=== PATIENT | female | born 1940 | race Caucasian/White ===

== ENCOUNTER → 2017-06-06 | Outpatient (CLI) | payer MEDICARE ==
[~2017-06-06] MED LIST: ASPI-183 PO; CALC1TAB87 PO; ENAL20TA PO; ESTR0.1D3 T-DERMAL; FLAX1000 PO; LEVO25TA4 PO; MAGN250T11 PO; NIFE1TAB PO; OMEG12002 PO; SIMV40TA PO; TIMO0.5S30 LEFT EYE; VITA-142 PO; VITA1000 PO
[2017-06-06 09:40] LABS: AUTOMATED NEUTROPHIL # 6.2 TH/MM3 (1.8-7.7); BASOPHIL # 0.1 TH/MM3 (0-0.2); BASOPHIL % 0.7 % (0.0-2.0); EOSINOPHIL # 0.2 TH/MM3 (0-0.4); EOSINOPHIL % 2.7 % (0.0-4.0); HEMATOCRIT 42.7 % (35.0-46.0); HEMO FLAGS DIFF FINAL; LYMPH % 13.2 % (9.0-44.0); LYMPHOCYTE # 1.1 TH/MM3 (1.0-4.8); MEAN CELL VOLUME 94.1 FL (80.0-100.0); MEAN CORPUSCULAR HEMOGLOBIN 32.3 PG (27.0-34.0); MEAN CORPUSCULAR HGB CONC 34.4 % (32.0-36.0); MONO % 10.8 % (0.0-8.0); NEUT % 72.6 % (16.0-70.0); PLATELET COUNT 243 TH/MM3 (150-450); RED BLOOD COUNT 4.54 MIL/MM3 (4.00-5.30); RED CELL DISTRIBUTION WIDTH 12.8 % (11.6-17.2); WHITE BLOOD COUNT 8.6 TH/MM3 (4.0-11.0)
[2017-06-06 09:44] LABS: BACTERIA, URINE FEW /hpf; BLOOD, URINE NEG (NEG); COMMENT (UR) CULT NOT INDICATED; CULTURE IF INDICATED CULT NOT INDICATED; GLUCOSE,URINE NEG (NEG); KETONE, URINE NEG (NEG); MUCUS URINE FEW /lpf (OCC); NITRITE,URINE NEG (NEG); PH, URINE 6.5 (5.0-8.5); SQUAMOUS EPITHELIAL CELL URINE 7 /hpf (0-5); URINE COLOR LIGHT-YELLOW (YELLW/STRAW)
[2017-06-06 10:00] LABS: ANION GAP 8 MEQ/L (5-15); AST (GOT) 20 U/L (15-37); BICARBONATE 29.1 MEQ/L (21.0-32.0); BLOOD UREA NITROGEN 18 MG/DL (7-18); CHLORIDE 104 MEQ/L (98-107); GLOMERULAR FILTRATION RATE 55 ML/MIN (>89); GLUCOSE,FASTING 105 MG/DL (74-99); POTASSIUM 4.2 MEQ/L (3.5-5.1); SODIUM (NA) 141 MEQ/L (136-145)
[2017-06-06 10:03] LABS: ALKALINE PHOSPHATASE 89 U/L (45-117); ALT (GPT) 22 U/L (10-53); TOTAL BILIRUBIN ADULT 0.5 MG/DL (0.2-1.0)
--- NOTE | 2017-06-07 09:30 | EKG ---
Date Performed: 06/06/2017 Time Performed: 09:18:44 PTAGE: 77 years EKG: Sinus rhythm . Poor R wave progression - probable normal variant Inferior and anterior T wave changes are nonspeci fic Borderline ECG NO PREVIOUS TRACING DOCTOR: Yogi Mullen Interpretating Date/Time 06/07/2017 09:28:50
== END ==
LOC: CPRE 08:20
PROVIDERS: ATTEND Orthopaedic Surgery
DX: Z01.810 Encounter for preprocedural cardiovascular examination (principal); Z01.812 Encounter for preprocedural laboratory examination; M17.11 Unilateral primary osteoarthritis, right knee; R94.31 Abnormal electrocardiogram [ECG] [EKG]
CPT/HCPCS: 36415; 80053; 81001; 85025; 93005

== ENCOUNTER 2017-06-25 07:56 | Inpatient (IN) | payer MEDICARE ==
[~2017-06-25] VITALS: Ht 160 cm; Wt 59.0 kg
[2017-06-25] MEDS ORDERED: VANCOMYCIN 1250 MG/NS 250 ML (for 70-84 kg) IV SCH ×4 (08:30→09:00)
[2017-06-25] MEDS ORDERED: SODIUM CHLORIDE 0.9% INJ 100 ML ONE (08:58)
[2017-06-25] MEDS ORDERED: CHLORHEXIDINE GLUCONATE 2 % 1 PACK (2 CLOTHS) TOPICAL PRN (09:00)
[2017-06-25] MEDS ORDERED: SODIUM CHLORID 0.9% 500 ML IV PRN (09:00)
[2017-06-25] MEDS ORDERED: LACTATED RINGER'S 1000 ML IV PRN (09:00)
[2017-06-25] MEDS ORDERED: CLINDAMYCIN 900 MG/NS 100 ML IV SCH ×2 (09:00)
[2017-06-25] MEDS ORDERED: POVIDONE IODINE 7.5% SCRUB 118 ML BOTTLE TOPICAL SCH (09:00)
[2017-06-25] MEDS ORDERED: METOPROLOL TARTRATE 25 MG TAB PO PRN (09:00)
[2017-06-25] MEDS ORDERED: POVIDONE IODINE 5% (ANTISEPSIS KIT) 4 APPLICATIONS EACH NARE PRN (09:00)
[2017-06-25] MEDS ORDERED: ROPIVACAINE PERI-ARTICULAR INJECTION. P-ARTICULR SCH ×5 (10:00)
[2017-06-25] MEDS ORDERED: TRANEXAMIC ACID INJ 590 MG in SODIUM CHLORIDE 0.9% INJ 100 ML IV SCH ×3 (10:00→14:00)
[2017-06-25] MEDS ORDERED: ACETAMINOPHEN 1000 MG/100 ML 100 ML IV ONE (10:22)
[2017-06-25] MEDS ORDERED: MIDAZOLAM HCL 2 MG/2 ML VIAL ONE (10:35)
[2017-06-25] MEDS ORDERED: ONDANSETRON HCL 4 MG/2 ML VIAL IV PUSH ONE (12:00)
[2017-06-25] MEDS ORDERED: KETOROLAC TROMETHAMINE 30 MG/ML (IVP) VIAL IV PUSH ONE (12:00)
[2017-06-25] MEDS ORDERED: *Lactated Ringer's INJ 1,000 ML IV ONE (12:00)
[2017-06-25] MEDS ORDERED: ePHEDrine/NS 25 MG/5 ML SYRINGE IV ONE (12:00)
[2017-06-25] MEDS ORDERED: PROPOFOL 200 MG/20 ML AMP IV ONE (12:00)
[2017-06-25] MEDS ORDERED: NEOSTIGMINE 5 MG/5 ML SYRINGE IV PUSH ONE (12:00)
[2017-06-25] MEDS ORDERED: ROCURONIUM INJ 50 MG/5 ML SYRINGE IV PUSH ONE (12:00)
[2017-06-25] MEDS ORDERED: PHENYLEPH/NS 1000 MCG/10 ML SYR IV PUSH ONE (12:00)
[2017-06-25] MEDS ORDERED: GLYCOPYRROLATE 1 MG/5 ML SYRINGE IV PUSH ONE (12:00)
[2017-06-25] MEDS ORDERED: LIDOCAINE HCL 1% PF 5 ML SYRINGE OTHER ONE (12:00)
[2017-06-25] MEDS ORDERED: DEXAMETHASONE SOD PHOS 4 MG/ML VIAL IV ONE (12:00)
[2017-06-25] MEDS ORDERED: TOBRAMYCIN 1200 MG VIAL (ortho-sterile core) ONE (12:13)
[2017-06-25] MEDS ORDERED: GENTAMICIN SULFATE 80 MG/2 ML VIAL IRRIGATION ONE (12:27)
[2017-06-25] MEDS ORDERED: DO NOT ADM ANY ANTICOAGULANT DRUGS PRN (13:25)
[2017-06-25] MEDS ORDERED: ONDANSETRON HCL 4 MG/2 ML VIAL IVP PRN (13:30)
[2017-06-25] MEDS ORDERED: TRAM50 PO (13:30)
[2017-06-25] MEDS ORDERED: HYDR-3516 PO (13:30)
[2017-06-25] MEDS ORDERED: Post-op Orders (for Pharmacy) XX ONE (13:30)
[2017-06-25] MEDS ORDERED: MORPHINE SULFATE 30 MG/30 ML PCA IV SCH (13:30)
[2017-06-25] MEDS ORDERED: TEMAZEPAM 15 MG CAP PO PRN (13:30)
[2017-06-25] MEDS ORDERED: diphenhydrAMINE HCL 50 MG/ML VIAL IV PUSH PRN (13:30)
[2017-06-25] MEDS ORDERED: traMADol HCL 50 MG TAB PO PRN (13:30)
[2017-06-25] MEDS ORDERED: NALOXONE HCL 0.4 MG/ML AMP IV PUSH PRN (13:30)
--- NOTE | 2017-06-25 13:32 | HHI.FF ---
Face to Face Verification Diagnosis: (1) Total knee replacement status Physical Therapy Gait training Knee: Total knee, Protocol: Right Right LE Weight Bearing: WB as tolerated Nursing Nursing: Dressing changes (No dressing change till jul 01, then QOD) Dressing Changes: Coverderm/Primapore I have seen patient Christine Gary on 06/25/17. My clinical findings support the need for the requested home health care services because: Limited ability to care for self I certify that my clinical findings support that this patient is homebound because: Post-op weakness Unable to use public transportation Orlando Recio MD Jun 25, 2017 13:32
[2017-06-25] MEDS ORDERED: WALKER WHEELS/F1 MIS (13:35)
[2017-06-25] MEDS ORDERED: COMMODE 3-IN-11 MIS (13:35)
[2017-06-25] MEDS: SODIUM CHLOR 0.9% 1000 ML INJ 1,000 ML IV SCH (13:48)
--- NOTE | 2017-06-25 13:53 | MP ---
cc: YVETTEJACQUELYN DATE OF SURGERY 06/25/2017 DATE OF 1940 ANESTHESIA General PREOPERATIVE DIAGNOSIS Osteoarthritis right knee POSTOPERATIVE DIAGNOSIS Osteoarthritis right knee OPERATIVE PROCEDURE Total knee replacement arthroplasty right knee using cemented Biomet Vanguard components. Femur 62.5 mm, tibia 63 mm I-Beam stem, polyethylene 12 mm flat patella was not resurfaced. TECHNIQUE After induction of general anesthesia and adductor block, the right lower extremity was thoroughly prepped with alcohol and ChloraPrep and draped in routine fashion. The knee was flexed and a skin incision was marked medial to the midline, keeping it away from where she would be kneeling on during her employment. The incision was deepened through the subcutaneous tissue. A medial parapatellar arthrotomy incision was carried out followed by retraction of the patella and exposure of the medial side of the tibia by subperiosteal dissection of the medial structures, protecting the superficial medial collateral ligament. Osteophytes were excised. Eventually dissection carried out to the posteromedial corner with an excision of osteophytes and some limited soft tissue release there. A distal femoral cutting guide was used to 5 degrees of valgus after opening the canal and the distal femoral cut was made. A proximal tibial cut was made referencing it 4-mm from the lower most portion of the medial tibial plateau and I was satisfied with the bone excision. Alignment of the tibial cut was checked and found to be satisfactory. AP cutting guide was used in 3 degrees of external rotation in reference to the epicondylar axis and Whitesides line and it was noted that there was some medial lateral mismatch and therefore the anterior holes on the guide were made rather than the posterior holes. 62.5 mm cutting block was used to make AP and chamfer cuts. A spacer block was used and fits well in flexion, extension, mid flexion. No instability. There has been adequate release on the medial side. Bony surfaces prepared for the trial which was then placed and trialed with 10 and 12 mm spacer and found to be satisfactory. Patella tracks nicely. The patella was examined. There was plenty of cartilage there. The osteophytes were excised and it was decided not to resurface the patella. The bony surfaces were thoroughly lavaged and dried. The femoral canal plugged with bone. A mixture of Exparel diluted with saline was injected periarticularly. Bony surfaces thoroughly lavaged and dried following cementation of the implants with Simplex cement with 1200 mg of Tobramycin in it. The tibia was placed first in satisfactory external rotation, followed by femur extending the knee getting all the excess cement out. While the cement was solidifying, a solution of 17.5 cc of Betadine and 100 mg of saline placed in the joint for five minutes. The tourniquet was released once cement solidified. The joint was checked. There is some tendency for tightness of the patella laterally and therefore a limited lateral release was carried out. The vessel had to be cauterized. Once that was done, there was good tracking of the patella. The knee was closed in mid-flexion with four interrupted #2 Vicryl sutures in the retinaculum. The rest closed with #2 Quill, the subcutaneous tissue closed with 2-0 Vicryl, skin closed with subcuticular 3-0 Quill and Steri-Strips. Dressings applied with silver impregnated super-absorbent dressing, followed by Sof-Rol, ice bladder, and Flavio bandage. Hemovac drain left in the suprapatellar pouch brought out through the superolateral aspect and the drain clamped. The patient tolerated the procedure well, transfusions and complications none. Postoperative condition, satisfactory. PROGNOSIS Good MD CONNIE Cheng/YASH /1:00 PM /1:07 PM
[2017-06-25] MEDS ORDERED: *morphine SULFATE 4 MG/ML PERIprocedure ONLY ONE ×3 (13:58→14:17)
[2017-06-25] MEDS ORDERED: ESTRADIOL 0.1 MG/24 HR PATCH T-DERMAL SCH (14:00)
--- NOTE | 2017-06-25 14:08 | RADRPT ---
EXAM DATE/TIME: 06/25/2017 13:50 [facility] COMPARISON: No previous studies available for comparison. INDICATIONS : Post op right total knee. MEDICAL HISTORY : Unobtainable. SURGICAL HISTORY : Unobtainable. ENCOUNTER: Initial ACUITY: 1 day PAIN SCORE: Non-responsive. LOCATION: Right knee. FINDINGS: AP and lateral views of the knee following arthroplasty reveals a prosthesis in anatomic alignment. F racture is not appreciated. Surgical drain is evident CONCLUSION: Status post total knee arthroplasty. Skyler Griffin MD FACR. Board Certified Radiologist. This report was verified electronically.
[2017-06-25 16:00] VITALS: BP 109/57; PULSE 66; RESP 17; TEMP 95.1; O2SAT 94
[2017-06-25] MEDS ORDERED: REMOVE OLD PATCH T-DERMAL SCH (16:00)
[2017-06-25] MEDS: CLINDAMYCIN INJ 600 MG in SODIUM CHLORIDE 0.9% INJ 100 ML IV SCH (18:50)
[2017-06-25 20:25] VITALS: BP 117/61; PULSE 68; RESP 20; TEMP 97.2; O2SAT 94
[2017-06-25] MEDS: KETOROLAC TROMETHAMINE 30 MG/ML (IVP) VIAL IVP SCH (20:42)
[2017-06-25] MEDS: ENALAPRIL MALEATE 10 MG TAB PO SCH (20:42)
[2017-06-25] MEDS: TIMOLOL MALEATE 0.5% OPHT SOLN 5 ML BTL LEFT EYE SCH (20:48)
[2017-06-25] MEDS ORDERED: VANCOMYCIN INJ 1,250 MG in SODIUM CHLOR 0.9% 250 ML INJ 250 ML IV SCH (23:00)
[2017-06-26] VITALS (7 sets, daily range): BP systolic 101–138; BP diastolic 52–70; PULSE 68–76; RESP 17–18; TEMP 95.5–97.7; O2SAT 92–94
[2017-06-26] MEDS: CLINDAMYCIN INJ 600 MG in SODIUM CHLORIDE 0.9% INJ 100 ML IV SCH ×3 (00:34→12:59)
[2017-06-26] MEDS: SODIUM CHLOR 0.9% 1000 ML INJ 1,000 ML IV SCH ×4 (00:34→21:00)
[2017-06-26 04:55] LABS: HEMATOCRIT 34.8 % (35.0-46.0); HEMOGLOBIN 11.7 GM/DL (11.6-15.3)
[2017-06-26 05:12] LABS: BICARBONATE 26.6 MEQ/L (21.0-32.0); CALCIUM 7.9 MG/DL (8.5-10.1); CREATININE 0.85 MG/DL (0.50-1.00)
[2017-06-26] MEDS: ACETAMINOPHEN 1000 MG/100 ML VIAL IV SCH ×2 (05:26→18:05)
[2017-06-26] MEDS: LEVOTHYROXINE SODIUM 100 MCG TAB PO SCH (05:29)
[2017-06-26] MEDS: KETOROLAC TROMETHAMINE 30 MG/ML (IVP) VIAL IVP SCH ×3 (05:29→20:55)
[2017-06-26] MEDS ORDERED: NON-FORMULARY DRUG (Flaxseed (Linseed) (Flaxseed Oil) 1,000 MG) PO SCH (09:00)
[2017-06-26] MEDS: DOCUSATE SODIUM 50 MG/SENNA 8.6 MG TAB PO SCH ×2 (09:00→20:58)
[2017-06-26] MEDS: NIFEdipine 90 MG SUSTAINED RELEASE TAB PO SCH (09:00)
[2017-06-26] MEDS: MAGNESIUM HYDROXIDE SUSP 30 ML CUP PO SCH ×2 (09:24→20:58)
[2017-06-26] MEDS: TIMOLOL MALEATE 0.5% OPHT SOLN 5 ML BTL LEFT EYE SCH ×2 (09:24→20:56)
[2017-06-26] MEDS: ENALAPRIL MALEATE 10 MG TAB PO SCH ×2 (09:24→20:59)
[2017-06-26] MEDS: CALCIUM/VITAMIN D 250 MG/125 U TAB PO SCH (09:25)
[2017-06-26] MEDS: CHOLECALCIFEROL (VIT D3) 1000 UNIT TAB PO SCH (09:25)
[2017-06-26] MEDS: PRAVASTATIN SOD 80 MG TAB PO SCH (09:27)
[2017-06-26] MEDS: ASPIRIN EC 325 MG TABEC PO SCH (09:31)
[2017-06-26] MEDS: DOCUSATE SODIUM 100 MG CAP PO SCH (20:57)
[2017-06-27 00:25] VITALS: BP 119/56; PULSE 78; RESP 17; TEMP 96.4; O2SAT 94
[2017-06-27] MEDS: KETOROLAC TROMETHAMINE 30 MG/ML (IVP) VIAL IVP SCH ×2 (03:48→12:54)
[2017-06-27] MEDS: LEVOTHYROXINE SODIUM 100 MCG TAB PO SCH (05:24)
[2017-06-27] MEDS: ACETAMINOPHEN 1000 MG/100 ML VIAL IV SCH (05:25)
[2017-06-27 08:00] VITALS: BP 161/76; PULSE 79; RESP 18; TEMP 97.1; O2SAT 100
--- NOTE | 2017-06-27 08:00 | PD.ORT.PN ---
Subjective Post Op Day #: 2 Pain Scale: bad night Subjective Remarks questions about dc plans fu etc Range of Motion able to SLR Objective Vitals Vital Signs Date Time Temp Pulse Resp B/P (MAP) Pulse Ox O2 Delivery O2 Flow Rate FiO2 06/27/17 00:25 96.4 78 17 119/56 (77) 94 06/26/17 20:50 96.7 76 17 101/52 (68) 92 06/26/17 20:15 94 21 06/26/17 16:00 95.5 75 17 116/63 (80) 93 06/26/17 12:00 95.8 69 17 138/68 (91) 93 06/26/17 08:00 96.9 68 17 121/65 (83) 93 I/O 06/26/17 06/26/17 06/26/17 06/27/17 06/27/17 06/27/17 07:00 15:00 23:00 07:00 15:00 23:00 Intake Total 1528 ml 480 ml 720 ml 720 ml Output Total 40 ml 50 ml Balance 1488 ml 480 ml 670 ml 720 ml Intake Oral 240 ml 480 ml 720 ml 720 ml IV Total 1288 ml Drainage Total 40 ml 50 ml # Voids 4 5 3 5 # Bowel Movements 0 0 0 0 Result Diagram: 06/26/17 0411 06/26/17 041 Objective Remarks was sleeping, drowsy on waking up Post op dressings and drain present able to SLR Moves toes well Assessment & Plan Ortho Post Op Day #: 2 Problem List: Assessment and Plan POD 2 Discussed care with nursing wound care/drain discussed Dc this evening, if doing OK. Rx tramadol , Hydrocodeone and ASA FU saturday 07/08 Orlando Recio MD Jun 27, 2017 08:00
[2017-06-27] MEDS: NIFEdipine 90 MG SUSTAINED RELEASE TAB PO SCH (09:00)
[2017-06-27] MEDS: TIMOLOL MALEATE 0.5% OPHT SOLN 5 ML BTL LEFT EYE SCH (09:00)
[2017-06-27] MEDS: DOCUSATE SODIUM 50 MG/SENNA 8.6 MG TAB PO SCH (09:00)
[2017-06-27] MEDS: ACETAMINOPHEN/HYDROcodone 325 MG/5 MG TAB PO PRN ×2 (09:36→16:22)
[2017-06-27] MEDS: PRAVASTATIN SOD 80 MG TAB PO SCH (09:58)
[2017-06-27] MEDS: ASPIRIN EC 325 MG TABEC PO SCH (09:58)
[2017-06-27] MEDS: MAGNESIUM HYDROXIDE SUSP 30 ML CUP PO SCH (09:58)
[2017-06-27] MEDS: CHOLECALCIFEROL (VIT D3) 1000 UNIT TAB PO SCH (09:58)
[2017-06-27] MEDS: DOCUSATE SODIUM 100 MG CAP PO SCH (09:58)
[2017-06-27] MEDS: ENALAPRIL MALEATE 10 MG TAB PO SCH (09:59)
[2017-06-27] MEDS: CALCIUM/VITAMIN D 250 MG/125 U TAB PO SCH (09:59)
[2017-06-27 10:00] VITALS: O2SAT 98
[2017-06-27 12:00] VITALS: BP 120/68; PULSE 76; RESP 18; TEMP 100; O2SAT 96
[2017-06-27] MEDS: SODIUM CHLOR 0.9% 1000 ML INJ 1,000 ML IV SCH (15:08)
== END 2017-06-27 16:47 | disposition home health service (06) | DRG 470 ==
LOC: HSDI 07:56 → N06B 15:29
PROVIDERS: ADMIT Orthopaedic Surgery; ATTEND Orthopaedic Surgery
PROC: 3E0T3BZ Introduction of Anesthetic Agent into Peripheral Nerves and Plexi, Percutaneous Approach (ICD-10-PCS; 2017-06-25)
PROC: 0SRC0J9 Replacement of Right Knee Joint with Synthetic Substitute, Cemented, Open Approach (ICD-10-PCS; principal; 2017-06-25 10:49)
DX: M17.11 Unilateral primary osteoarthritis, right knee (principal); I10 Essential (primary) hypertension; E78.5 Hyperlipidemia, unspecified; E03.9 Hypothyroidism, unspecified; Z88.1 Allergy status to other antibiotic agents; Z88.5 Allergy status to narcotic agent; Z88.0 Allergy status to penicillin
CPT/HCPCS: 73560; 80048; 85014; 85018; 86850; 86900; 86901; 94150; C1776; J0131; J0735; J1100; J1200; J1885; J2250; J2270; J2370; J2405; J2710; J2795; J3010; J3370; J7030; J7050; J7120